=== PATIENT | female | born 1995 | race Caucasian/White ===

== ENCOUNTER 2019-05-20 20:29 | Emergency (ER) | payer BC ==
[2019-05-20 20:44] VITALS: BP 150/77
[2019-05-20] MEDS ORDERED: Ibuprofen TAB* 600 MG PO ONE (20:55)
[2019-05-20 21:14] LABS: Influenza A Molecular NEGATIVE (Negative); Influenza B Molecular NEGATIVE (Negative)
--- NOTE | 2019-05-20 21:51 | UC ---
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 Increasing sore throat with dysphagia, but keeping a high intake of fluids and continues to pass clear urine. Yesterday she rested in bed all day; today has had severe chills and rigors. No nausea or vomiting. Had loose stools evening of 05/17, but this has resolved. Appetite decreased. No rash or joint swelling. Has not had this year's flu vaccine. Boyfriend had a viral illness 1 month ago, had contact after his fever had resolved. No hx of EBV in the past, Recent travel to [place], no known infectious contacts while there, and has felt unwell since she returned. - History of Current Complaint Chief Complaint: UCGeneralIllness Time Seen by Provider: 05/20/19 21:40 Hx Obtained From: Patient Hx Last Menstrual Period: 05/05/19 Onset/Duration: Started Days Ago - 2 Timing: Constant Initial Severity: Moderate Current Severity: Moderate Pain Intensity: 7 Aggravating Factors: Nothing Alleviating Factors: OTC Medicine - first dose of ibuprofen taken was at this evening, with some relief of myalgias. Previously using mucinex alone. Associated Signs and Symptoms: Cough - minimal, without chest pain or dyspnea, Diaphoresis, Headache, Myalgia, Sore Throat - Risk Factors Pseudomonas Risk Factors: Negative Serious Bacterial Infection Risk Factors: Negative - Allergy/Home Medications Allergies/Adverse Reactions: Allergies Allergy/AdvReac Type Severity Reaction Status Date / Time Penicillins Allergy Intermediate Rash Verified 05/20/19 20:44 Home Medications: Home Medications guaiFENesin [Mucinex] 600 mg PO ONCE 05/20/19 [History Confirmed 05/20/19] PMH/Surg Hx/FS Hx/Imm Hx Previously Healthy: Yes - Surgical History Surgical History: Yes Surgery Procedure, Year, and Place: wisdom teeth - Family History Known Family History: Positive: Cardiac Disease - father age 65 of CAD, hx of stroke. - Social History Occupation: Student Lives: Alone Alcohol Use: Rare Substance Use Type: None Smoking Status (MU): Never Smoked Tobacco Review of Systems All Other Systems Reviewed And Are Negative: Yes Constitutional: Positive: Fever, Chills, Fatigue Skin: Positive: Negative. Negative: Rash Eyes: Positive: Negative. Negative: Photophobia ENT: Positive: Sore Throat, Nasal Discharge Respiratory: Positive: Cough - mild. Negative: Shortness Of Breath Cardiovascular: Negative: Palpitations, Chest Pain Gastrointestinal: Positive: Diarrhea - now resolved. Genitourinary: Positive: Negative, Other - has not been sexually active for about 8 months, has no vaginal discharge or low abdominal pain.. Negative: Dysuria, Hematuria, Frequency, Urgency Motor: Positive: Negative Neurovascular: Positive: Negative Musculoskeletal: Positive: Myalgia Neurological: Positive: Headache Psychological: Positive: Negative Is Patient Immunocompromised?: No Physical Exam Triage Information Reviewed: Yes Appearance: No Pain Distress, Ill-Appearing - looks flushed and unwell, but alert, Obese Vital Signs: Initial Vital Signs Temp 104.0 F 05/20/19 20:39 Pulse 132 05/20/19 20:39 Resp 19 05/20/19 20:39 BP 150/77 05/20/19 20:39 Pulse Ox 99 05/20/19 20:39 Eyes: Positive: Conjunctiva Inflamed - mild bilateral injection. JACQUELYN, normal eom. No photophobia ENT: Positive: Pharyngeal erythema, Nasal drainage, Tonsillar swelling - mild, without obstruction. Negative: Tonsillar exudate Neck: Positive: Supple - can freely flex her neck, Nontender, No Lymphadenopathy Respiratory: Positive: Lungs clear, Normal breath sounds, No respiratory distress Cardiovascular: Positive: No Murmur, Tachycardia Abdomen Description: Positive: Nontender, No Organomegaly, Soft. Negative: CVA Tenderness (R), CVA Tenderness (L) Musculoskeletal Exam: Normal Musculoskeletal: Positive: Strength Intact, ROM Intact, No Edema Neurological: Positive: Alert, Muscle Tone Normal Psychological Exam: Normal Skin Exam: Normal Diagnostics - Laboratory Lab Results: rapid flu and rapid strep negative Course/Dx - Course Course Of Treatment: Viral syndrome, with high fever for the past 24 hours or so. Discussed that there is no clinical focus. Labs done to check white count and monospor. Advised follow up if fever persists or symptoms change. - Febrile Illness Differential Diagnoses: Fever of Unknown Origin, Viremia, Other: - strep, influenza - Diagnoses Provider Diagnosis: Viral syndrome Discharge ED - Sign-Out/Discharge Documenting (check all that apply): Patient Departure All imaging exams completed and their final reports reviewed: No Studies - Discharge Plan Condition: Stable Disposition: HOME Patient Education Materials: Viral Syndrome (ED) Referrals: No Primary Care Phys,NOPCP [Primary Care Provider] - Additional Instructions: Labs have been done to check your white count and screen for possible mononucleosus. For control of fever, you can alternate ibuprofen 600mg every 6 hours with acetaminophen 650mg every 6 hours. Ensure continued high intake of fluids. If your fever persists, you develop worsening cough or shortness of breath, new symptoms such as abdominal pain or vomiting, it is important to have a reassessment. - Billing Disposition and Condition Condition: STABLE Disposition: Home
[2019-05-20] MEDS ORDERED: Acetaminophen TAB* 325 MG PO ONE (22:00)
[2019-05-21 11:22] LABS: Hematocrit 40 % (35-47); Hemoglobin 13.5 g/dL (12.0-16.0); Mean Corpuscular HGB Conc 34 g/dL (31-36); Mean Corpuscular Hemoglobin 30 pg (27-31); Mean Corpuscular Volume 89 fL (80-97); Mean Platelet Volume 8.5 fL (7.4-10.4); Platelet Count 369 10^3/uL (150-450); Red Blood Count 4.46 10^6 /uL (3.70-4.87); Red Cell Distribution Width 13 % (10-15); White Blood Count 13.9 10^3/uL (3.5-10.8)
[2019-05-21 11:42] LABS: Albumin 4.3 g/dL (3.2-5.2); Calcium 9.4 mg/dL (8.6-10.3); Potassium 3.8 mmol/L (3.5-5.0); Total Bilirubin 0.5 mg/dL (0.2-1.0)
[2019-05-21 11:48] LABS: Albumin/Globulin Ratio 1.5 (1-3); BUN/Creatinine Ratio 12.2 (8-20); EGFR African American 117.7 (>60); EGFR Non-African American 97.3 (>60); Globulin 2.8 g/dL (2-4); Total Protein 7.1 g/dL (6.4-8.9)
[2019-05-21 12:11] LABS: ABS Basophils 0.1 10^3/ul (0-0.2); ABS Lymphocytes 2.3 10^3/ul (1.0-4.8); ABS Monocytes 1.9 10^3/ul (0-0.8); ABS Neutrophils 9.6 10^3/ul (1.5-7.7); Eosinophil % 0.1 %; Lymphocyte % 16.5 %; Nucleated Red Blood Cells % 0.1
--- NOTE | 2019-05-21 18:41 | UC ---
- Progress Note Progress Note: Please call to review labs. Seen last evening with high fever. She has a mild increase in her white blood count, and her serum sodium is a little low. Monospot is negative. Call to ensure that she is improving, and advise should follow up if she is having persistent fevers. The low serum sodium does not need treatment--it can accompany an acute illness and should correct itself. Course/Dx - Diagnoses Provider Diagnoses: Viral syndrome Discharge ED - Sign-Out/Discharge Documenting (check all that apply): Post-Discharge Follow Up All imaging exams completed and their final reports reviewed: No Studies - Discharge Plan Condition: Stable Disposition: HOME Patient Education Materials: Viral Syndrome (ED) Referrals: No Primary Care Phys,NOPCP [Primary Care Provider] - Additional Instructions: Labs have been done to check your white count and screen for possible mononucleosus. For control of fever, you can alternate ibuprofen 600mg every 6 hours with acetaminophen 650mg every 6 hours. Ensure continued high intake of fluids. If your fever persists, you develop worsening cough or shortness of breath, new symptoms such as abdominal pain or vomiting, it is important to have a reassessment. - Billing Disposition and Condition Condition: STABLE Disposition: Home
== END 2019-05-20 22:25 | disposition home or self-care (01) ==
LOC: UCEAST 20:29
DX: B34.9 Viral infection, unspecified (principal); R51 Headache; M79.10 Myalgia, unspecified site; J02.9 Acute pharyngitis, unspecified; R13.10 Dysphagia, unspecified; R09.89 Other specified symptoms and signs involving the circulatory and respiratory systems; R63.8 Other symptoms and signs concerning food and fluid intake; Z88.0 Allergy status to penicillin
CPT/HCPCS: 36415; 80053; 85025; 85060; 86308; 87651; 99202; A9270-GY; G0463

== ENCOUNTER 2019-05-22 10:40 | Emergency (ER) | payer BC ==
[2019-05-22 11:02] VITALS: BP 134/65
--- NOTE | 2019-05-22 11:36 | UC ---
Throat Pain/Nasal Magdaleno HPI - HPI Summary HPI Summary: 23-year-old woman comes in with chief complaint of 5 days of fevers chills and bodyaches sore throat. She was seen here on 20 May had a negative influenza negative strep negative mono spot. Her white blood cell count was elevated at 13.9 thousand with an increase in the percentage of neutrophils. Monocytes were not increased. Sodium was also slightly low at 133. Since that time fevers have improved some however throat is more painful and it's more difficult to swallow. Patient reports she is able to drink water and breathe. She also has a dry cough which she believes is from postnasal drip. She has been tired but not extremely fatigued. - History of Current Complaint Chief Complaint: UCRespiratory Stated Complaint: RECHECK COUGH SORE THROAT Time Seen by Provider: 05/22/19 11:13 Hx Last Menstrual Period: 05/05/19 Pain Intensity: 6 - Allergies/Home Medications Allergies/Adverse Reactions: Allergies Allergy/AdvReac Type Severity Reaction Status Date / Time Penicillins Allergy Intermediate Rash Verified 05/22/19 11:02 Home Medications: Home Medications Acetaminophen [Mapap] 500 mg PO Q6HR 05/22/19 [History Confirmed 05/22/19] Ibuprofen 400 mg PO Q6HR 05/22/19 [History Confirmed 05/22/19] PMH/Surg Hx/FS Hx/Imm Hx Previously Healthy: Yes - Surgical History Surgical History: Yes Surgery Procedure, Year, and Place: wisdom teeth - Family History Known Family History: Positive: Cardiac Disease - father age 65 of CAD, hx of stroke. - Social History Alcohol Use: Rare Substance Use Type: None Smoking Status (MU): Never Smoked Tobacco Review of Systems All Other Systems Reviewed And Are Negative: Yes Constitutional: Positive: Fever, Chills, Fatigue, Other - SEE HPI Skin: Positive: Negative Eyes: Positive: Negative ENT: Positive: Sore Throat, Nasal Discharge Respiratory: Positive: Cough Cardiovascular: Positive: Negative Gastrointestinal: Positive: Negative Motor: Positive: Negative Neurovascular: Positive: Negative Musculoskeletal: Positive: Myalgia Neurological: Positive: Negative Psychological: Positive: Negative Is Patient Immunocompromised?: No Physical Exam Triage Information Reviewed: Yes Appearance: No Pain Distress, Well-Nourished, Ill-Appearing - MILD Vital Signs: Initial Vital Signs Temp 98.5 F 05/22/19 10:58 Pulse 88 12/05/19 10:58 Resp 18 05/22/19 10:58 BP 134/65 05/22/19 10:58 Pulse Ox 97 05/22/19 10:58 Vital Signs Reviewed: Yes Eye Exam: Normal Eyes: Positive: Conjunctiva Clear ENT: Positive: Pharyngeal erythema, Nasal drainage, TMs normal, Tonsillar swelling - 3+ B/L, Tonsillar exudate. Negative: Muffled voice, Hoarse voice Neck: Positive: Supple Respiratory: Positive: Lungs clear, Normal breath sounds, No respiratory distress. Negative: Stridor Cardiovascular: Positive: RRR Musculoskeletal: Positive: Strength Intact, ROM Intact Neurological: Positive: Alert, Muscle Tone Normal Psychological: Positive: Age Appropriate Behavior Skin Exam: Normal Throat Pain/Nasal Course/Dx - Course Course Of Treatment: We discussed the lab work from the May 20, 2019 visit. At this time I do not appreciate a peritonsillar abscess. Her tonsils are enlarged and she reports that been getting worse. We discussed viral versus bacterial infections and will treat with clindamycin due to the possibility of a missed bacterial tonsillitis. We'll also treat with 3 days of prednisone to help decrease swelling in the throat. At this time the patient does not have any problems with her airway. We discussed that if she does she need to the emergency department. - Differential Dx/Diagnosis Provider Diagnosis: Tonsillitis Discharge ED - Sign-Out/Discharge Documenting (check all that apply): Patient Departure All imaging exams completed and their final reports reviewed: No Studies - Discharge Plan Condition: Stable Disposition: HOME Prescriptions: Clindamycin Cap(NF) [Clindamycin Cap 300 mg Cap(NF)] 300 mg PO Q6H #40 cap predniSONE TAB* [Deltasone 20 MG TAB*] 40 mg PO DAILY #6 tab Patient Education Materials: Tonsillitis (ED) Referrals: [facility] [Outside] [facility] @ [Outside] Additional Instructions: FOLLOW UP WITH YOUR DOCTOR IF NOT COMPLETELY IMPROVED. GO TO THE EMERGENCY DEPARTMENT IF WORSE; DIFFICULTY SWALLOWING OR BREATHING OR ANY QUESTIONS OR CONCERNS. - Billing Disposition and Condition Condition: STABLE Disposition: Home
== END 2019-05-22 11:42 | disposition home or self-care (01) ==
LOC: UCEAST 10:40
DX: J03.90 Acute tonsillitis, unspecified (principal); M79.10 Myalgia, unspecified site; R53.83 Other fatigue; R09.89 Other specified symptoms and signs involving the circulatory and respiratory systems; Z88.0 Allergy status to penicillin
CPT/HCPCS: 99212; G0463

== ENCOUNTER 2019-05-31 20:28 | Observation (INO) | payer BC ==
--- NOTE | 2019-05-31 20:54 | ED ---
Lower Extremity - HPI Summary HPI Summary: Patient is a 23 y/o F presenting to the ED for a chief complaint of left ankle, calf, and knee swelling that worsened on 05/29/19. Patient is present with a friend. Patient states that for the last 2 weeks, she has been wearing an aircast on the left ankle after injuring the area playing volleyball. She now complains of worsening swelling and pain in the left ankle, left calf, and left knee. Patient denies any chest pain or shortness of breath. She has taken Tylenol and Advil for pain with some relief. Patient notes that she is completing a course of antibiotics for a prior respiratory infection. Any significant PMHx or PSHx is denied. - History of Current Complaint Chief Complaint: EDExtremityLower Stated Complaint: L LEG PAIN PER PT Time Seen by Provider: 05/31/19 20:47 Hx Obtained From: Patient Mechanism Of Injury: Fall From A Standing Position - Playing volleyball Onset of Pain: Immediate Onset/Duration: Still Present Severity Initially: Severe Severity Currently: Severe Pain Intensity: 7 Pain Scale Used: 0-10 Numeric Timing: Constant Location: Is Discrete @ - Left ankle, knee, and calf Character Of Pain: Unable To Describe Associated Signs And Symptoms: Positive: Knee Pain - Left Aggravating Factor(s): Nothing Alleviating Factor(s): OTC Meds - Tylenol and Advil - Allergies/Home Medications Allergies/Adverse Reactions: Allergies Allergy/AdvReac Type Severity Reaction Status Date / Time Penicillins Allergy Rash And Verified 05/31/19 20:32 Itching PMH/Surg Hx/FS Hx/Imm Hx Previously Healthy: Yes Endocrine/Hematology History: Denies: Hx Diabetes Cardiovascular History: Denies: Hx Hypercholesterolemia, Hx Hypertension Sensory History: Denies: Hx Legally Blind, Hx Deafness Opthamlomology History: Denies: Hx Legally Blind EENT History: Denies: Hx Deafness - Surgical History Surgical History: None Surgery Procedure, Year, and Place: None Infectious Disease History: No Infectious Disease History: Denies: Traveled Outside the [place] in Last 30 Days - Family History Known Family History: Negative: Diabetes, Renal Disease - Social History Occupation: Student Alcohol Use: Occasionally Hx Substance Use: No Substance Use Type: Reports: None Hx Tobacco Use: No Smoking Status (MU): Never Smoked Tobacco Review of Systems Negative: Chest Pain Negative: Shortness Of Breath Positive: Arthralgia - Left knee and ankle, Myalgia - Left calf, Edema - Left knee, ankle, and calf All Other Systems Reviewed And Are Negative: Yes Physical Exam - Summary Physical Exam Summary: Appearance: Well-appearing, Well-nourished, lying in bed comfortably Skin: Warm, dry, no obvious rash Eyes: sclera anicteric, no conjunctival pallor ENT: mucous membranes moist, pharynx appears normal Neck: Supple, nontender Respiratory: Clear to auscultation, no signs of respiratory distress Cardiovascular: Normal S1, S2. No murmurs. Normal distal pulses in tibial and radial bilaterally. Abdomen: Soft, nontender, normal active bowel sounds present Musculoskeletal: Strength/ROM Intact. Left leg is somewhat swollen and warmer than the right leg, pitting edema on the couch, no redness or focal tenderness, patient states soreness when the area is squeezed. Neurological: A&Ox3, awake and alert, mentation is normal, speech is fluent and appropriate Psychiatric: affect is normal, does not appear anxious or depressed Triage Information Reviewed: Yes Vital Signs On Initial Exam: Initial Vitals Temp Pulse Resp BP Pulse Ox 97.7 F 120 15 133/90 100 05/31/19 20:29 05/31/19 20:29 05/31/19 20:29 05/31/19 20:29 05/31/19 20:29 Vital Signs Reviewed: Yes Procedures - Sedation Patient Received Moderate/Deep Sedation with Procedure: No Diagnostics - Vital Signs Vital Signs Temp Pulse Resp BP Pulse Ox 05/31/19 20:29 97.7 F 120 15 133/90 100 - Laboratory Result Diagrams: 05/31/19 22:17 05/31/19 22:17 Lab Statement: Any lab studies that have been ordered have been reviewed, and results considered in the medical decision making process. - Radiology Venous Doppler Study Summary of Radiographic Findings: Venous Doppler Study IMPRESSION: Acute DVT from the distal common femoral vein to the calf veins. Reviewed by Dr. Luna. - CT Chest/Thorax CTA CT Interpretation Completed By: Radiologist Summary of CT Findings: Chest/Thorax CTA IMPRESSION: Moderate volume pulmonary emboli burden with findings suggesting right heart strain and possible early small right lower lobe pulmonary infarct. Reviewed by Dr. Luna. Chest CT CT Interpretation Completed By: Radiologist Summary of CT Findings: Chest CT IMPRESSION: . Reviewed by Dr. Luna. Re-Evaluation - Re-Evaluation First Eval Re-Evaluation Time: 22:08 Change: Unchanged Comment: At 22:08, after coming back from ultrasound, patient admitted some dyspnea on exertion walking her apartment for the last 2 days. A re-evaluation of her vitals showed a blood pressure in the 120s, so I will order a chest CT to assess for pulmonary embolism. Lower Extremity Course/Dx - Course Course Of Treatment: Patient is a 23 y/o F presenting to the ED for a chief complaint of left ankle, calf, and knee swelling that worsened on 05/29/19. Patient is present with a friend. Patient states that for the last 2 weeks, she has been wearing an aircast on the left ankle after injuring the area playing volleyball. She now complains of worsening swelling and pain in the left ankle, left calf, and left knee. Patient denies any chest pain or shortness of breath. She has taken Tylenol and Advil for pain with some relief. Patient notes that she is completing a course of antibiotics for a prior respiratory infection. Any significant PMHx or PSHx is denied. On exam, left leg is somewhat swollen and warmer than the right leg, pitting edema on the couch, no redness or focal tenderness, patient states soreness when the area is squeezed. In the ED course , patient was given Xarelto 15 mg PO, omnipaque 91 ml IV, and fluids. Laboratory abnormal findings: WBC 17.4, Plt count 465, MPV 6.9, absolute neuts 10.8, absolute monos 2.2, urine specific gravity 1.058, urine ketones 3+, urine WBC 1+, urine RBC 3+, urine squamous epith cells present. Venous Doppler Study IMPRESSION: Acute DVT from the distal common femoral vein to the calf veins. At 22:08, after coming back from ultrasound, patient admitted some dyspnea on exertion walking her apartment for the last 2 days. A re-evaluation of her vitals showed a blood pressure in the 120s, so I will order a chest CT to assess for pulmonary embolism. Chest/Thorax CTA IMPRESSION: Moderate volume pulmonary emboli burden with findings suggesting right heart strain and possible early small right lower lobe pulmonary infarct. At 00:45, Dr. Sanjuanita Obrien reviewed the patients case and agrees to admit the patient to [facility]. Patient will be admitted to [facility] with a diagnosis of deep vein thrombosis and pulmonary embolism. - Diagnoses Provider Diagnoses: DVT (deep venous thrombosis), Pulmonary embolism - Physician Notifications Discussed Care Of Patient With: Sanjuanita Obrien - At 00:45, Dr. Sanjuanita Obrien reviewed the patients case and agrees to admit the patient to [facility]. Time Discussed With Above Provider: 00:45 Instructed by Provider To: Admit As Inpatient Discharge ED - Sign-Out/Discharge Documenting (check all that apply): Patient Departure - Admit - Discharge Plan Condition: Good Disposition: ADMITTED TO [facility] - Billing Disposition and Condition Condition: GOOD Disposition: Admitted to [facility] - Attestation Statements Document Initiated by Crys: Yes Documenting Scribe: Serene Ontiveros Provider For Whom Crys is Documenting (Include Credential): Julio Luna MD Scribe Attestation: Serene Buchanan, scribed for Julio Luna MD on 06/01/19 at 0136. Scribe Documentation Reviewed: Yes Provider Attestation: The documentation as recorded by the Serene grayson accurately reflects the service I personally performed and the decisions made by , Julio Luna MD Status of [place]rib[place]ie Document: Viewed
[2019-05-31] MEDS ORDERED: NS 0.9% 1000 ML** 1,000 ML IV ONE (22:07)
[2019-05-31] MEDS ORDERED: Rivaroxaban TAB(*) 15 MG PO ONE (22:07)
[2019-05-31 22:23] LABS: Hematocrit 36 % (35-47); Hemoglobin 12.3 g/dL (12.0-16.0); Mean Corpuscular HGB Conc 34 g/dL (31-36); Mean Corpuscular Hemoglobin 30 pg (27-31); Mean Corpuscular Volume 87 fL (80-97); Mean Platelet Volume 6.9 fL (7.4-10.4); Platelet Count 465 10^3/uL (150-450); Red Blood Count 4.18 10^6 /uL (3.70-4.87); Red Cell Distribution Width 13 % (10-15); White Blood Count 17.4 10^3/uL (3.5-10.8)
[2019-05-31 22:40] LABS: ABS Basophils 0.1 10^3/ul (0-0.2); ABS Eosinophils 0.3 10^3/ul (0-0.6); ABS Lymphocytes 4.1 10^3/ul (1.0-4.8); ABS Monocytes 2.2 10^3/ul (0-0.8); ABS Neutrophils 10.8 10^3/ul (1.5-7.7); ALT 19 U/L (7-52); AST 16 U/L (13-39); Albumin 3.9 g/dL (3.2-5.2); Alkaline Phosphatase 70 U/L (34-104); Anion Gap 8 mmol/L (2-11); BUN/Creatinine Ratio 15.3 (8-20); Blood Urea Nitrogen 11 mg/dL (6-24); CO2 Carbon Dioxide 24 mmol/L (22-32); Calcium 9.1 mg/dL (8.6-10.3); Chloride 103 mmol/L (101-111); EGFR African American 121.5 (>60); EGFR Non-African American 100.4 (>60); Eosinophil % 1.4 %; Glucose 99 mg/dL (70-100); Lymphocyte % 23.5 %; Potassium 3.6 mmol/L (3.5-5.0); Sodium 135 mmol/L (135-145); Total Protein 7.9 g/dL (6.4-8.9)
[2019-05-31 22:47] LABS: HCG Pregnancy < 0.60 mIU/mL
[2019-05-31] MEDS ORDERED: Iohexol 350* (CONTRAST) 500 ML MDV IV ONE (22:53)
[2019-06-01 01:10] LABS: Urine Appearance Cloudy; Urine Bilirubin Negative (Negative); Urine Blood 3+ (Negative); Urine Color Yellow; Urine Glucose Negative (Negative); Urine Ketones Negative (Negative); Urine Nitrite Negative (Negative); Urine Protein Negative (Negative); Urine Specific Gravity 1.058 (1.010-1.030); Urine Urobilinogen Negative (Negative)
[2019-06-01 01:12] LABS: Urine Bacteria Absent (Absent); Urine Red Blood Cell 3+(>10/hpf) (Absent); Urine Squamous Epithelial Cell Present (Absent); Urine White Blood Cell 1+(6-10/hpf) (Absent)
[2019-06-01] MEDS: NS 0.9% 1000 ML** 1,000 ML IV SCH ×2 (02:12→11:00)
--- NOTE | 2019-06-01 03:30 | ADMNOTE ---
Subjective Interval History: H&P 23 yo healthy female presented with acute swelling of her left lower EXT. She has been mostly bedbound after spraining her left ankle playing volleyball and she was using an aircast. US of her left EXT showed a pretty extensive DVT. Pt also had a CTA which showed multiple PEs bilaterally and evidence of right heart strain. Pt does not have any chest pain, denies feeling short of breath. She was on Abx recently for a URI. Family History: Unchanged from Admission Social History: Unchanged from Admission Past Medical History: Unchanged from Admission Review of Systems - Measurements Intake and Output: Intake and Output Last 24 Hours 05/29/19 05/30/19 05/31/19 06/01/19 06:59 06:59 06:59 06:59 Weight 235 lb - Review of Systems Constitutional Symptoms: Negative: Weight Gain, Weight Loss, Weakness, Fatigue, Fever, Night Sweats, Unexplained Falls, Other Dermatology: Negative: Normal, Rash, Skin Lesions, Cancer, Skin Lumps, Other HEENT: Negative: Normal, Change in Hearing, Vertigo, Dental Problems, Tinnitus, Sinus Problem, Other Eyes: Negative: Normal, Change in Vision, Double Vision, Eye Pain, Glaucoma, Cataract, Contacts or Glasses, Other Thyroid: Negative: Normal, Goiter, Thyroid Nodule, Cold Intolerance, Heat Intolerance , Sweatiness, Tremor, Frequent Defecation, Constipation, Palpitations, Primary Hypothyroidism, Primary Hyperthyroidism, Weight Loss, Weight Gain, Change in Skin/Hair, Change in Menstruation, Radiation Exposure, Other Pulmonary: Negative: Normal, Cough, Sputum, Hemoptysis, Wheezing, Respiratory Distress, Shortness of Breath, COPD, Asthma, Exercise Intolerance, Home Oxygen, Other Cardiology: Negative: Normal, Chest Pain, Shortness of Breath, Palpitations, Swelling of Ankles, Peripheral Vascular Dis, Edema, Faintness, Syncope, Claudication, Proximal NocturnalDyspnea, Orthopnoea, Other Gastroenterology: Negative: Normal, Abdominal Pain, Nausea, Vomiting, Anorexia, Indigestion, Difficulty Swallowing, Heartburn, Constipation, Diarrhea, Blood in Stools, Change in Bowel Habits, Haematemesis, Melena, Other Genital - Urinary: Negative: Normal, Dysuria, Hematuria, Polyuria, Nocturia, Other Genitourinay - Female: Negative: Menses Normal, Vaginal Discharge, Menopause, Dysmenorrhea, Other Musculoskeletal: Negative: Joint Pain, Joint Stiffness, Arthritis, Osteoporosis, Low Back Pain , Sciatica, Joint Deformities, Kyphoscoliosis, Other Endocrinology: Negative: Normal, Thyroid Problems, Adrenal Problems, Gonadal Problems, Family Hx Endocrine Disorders, Obesity, Diabetes Mellitus, Hyperglycemia, Hx Hypoglycemia, Diabetic Foot Ulcers, Calluses, Hirsutism, Menstrual Abnormalities , Polydipsia, Polyuria, Gonadal Problems, Gynecomastia, Pituitary disease, Other Hematologic/Lymphatic: Negative: Anemia, Easy Bruising, Hx Leukemia, Hx Lymphoma, Use of Anticoagulant, Use of Antiplatelet Drugs, Other Neurology: Negative: Normal, Headache, Migraines, Change in Vision, Diplopia, Dizziness , Change in Balancing, Change in Coordination, Change in Memory, Change in Speech, Change in Sphincter Function, Change in Walking, Numbness\Paresthesiae, Unexplained Weakness, Hx of Stroke\TIA, Hx of Seizures, Other Psychiatry: Negative: Normal, Depression, Anxiety, Depressed Mood, Anhedonia, Sexual Dysfunction, Weight Change, Guilt Feelings, Tearfulness, Unusual Fatigue, Unusual Anxiety, Suicidal Ideation, Hypomania, Eating Disorders, Other Allergic/Immunologic: Negative: Hx Anaphylaxis, Hx Angioedema, Hx Environmental, Hx Seasonal, Asthma, Hx HIV, Immunocompromise, Swollen Glands LymphNodes, Other Objective Active Medications: Sodium Chloride (Ns 0.9% 1000 Ml) 1,000 mls @ 125 mls/hr IV Q8H [facility] Last Admin: 06/01/19 02:12 Dose: 125 mls/hr Rivaroxaban (Xarelto(*)) 15 mg PO BID [facility] Vital Signs - 8 hr 05/31/19 05/31/19 05/31/19 20:29 22:34 22:39 Temperature 97.7 F Pulse Rate 120 224 211 Respiratory 15 20 Rate Blood Pressure 133/90 116/85 (mmHg) O2 Sat by Pulse 100 97 98 Oximetry 06/01/19 06/01/19 01:47 01:55 Temperature 101 F 99.0 F Pulse Rate 118 111 Respiratory 16 12 Rate Blood Pressure 141/81 122/70 (mmHg) O2 Sat by Pulse 94 96 Oximetry Oxygen Devices in Use Now: None Eyes: No Scleral Icterus, PERRLA Ears/Nose/Mouth/Throat: Clear Oropharnyx, Mucous Membranes Moist Neck: NL Appearance and Movements; NL JVP, Trachea Midline, No Thyroid Enlargement, Masses Respiratory: Symmetrical Chest Expansion and Respiratory Effort, Clear to Auscultation, Clear to Percussion Cardiovascular: NL Sounds; No Murmurs; No JVD, - - LLE edema Abdominal: NL Sounds; No Tenderness; No Distention Lymphatic: No Cervical Adenopathy Skin: No Rash or Ulcers, No Nodules or Sclerosis Neurological: Alert and Oriented x 3 Result Diagrams: 05/31/19 22:17 05/31/19 22:17 Assess/Plan/Problems-Billing Assessment: - Patient Problems (1) Pulmonary emboli Current Visit: Yes Status: Acute Code(s): I26.99 - OTHER PULMONARY EMBOLISM WITHOUT ACUTE COR PULMONALE SNOMED Code(s): 49739901 Comment: injured her leg, has mostly been bedbound since. Now presenting with acute swelling from a DVT and multiple PEs. Hx of provoked PEs in father Echo and trend troponins for risk stratificaiton Xarelto 15 BID for 3 weeks followed by 20 daily (2) Full code status Current Visit: Yes Status: Acute Code(s): Z78.9 - OTHER SPECIFIED HEALTH STATUS SNOMED Code(s): 334519928 (3) DVT prophylaxis Current Visit: Yes Status: Acute Code(s): Z29.9 - ENCOUNTER FOR PROPHYLACTIC MEASURES, UNSPECIFIED SNOMED Code(s): 698598892 Comment: xarelto
[2019-06-01] MEDS ORDERED: Benzonatate CAP* 100 MG PO PRN (03:35)
[2019-06-01] MEDS ORDERED: Acetaminophen TAB* 325 MG PO PRN (03:35)
[2019-06-01] MEDS ORDERED: Clindamycin CAP* 150 MG PO SCH (06:00)
[2019-06-01 06:19] LABS: Hematocrit 32 % (35-47); Hemoglobin 11.2 g/dL (12.0-16.0); Mean Corpuscular HGB Conc 35 g/dL (31-36); Mean Corpuscular Hemoglobin 30 pg (27-31); Mean Corpuscular Volume 86 fL (80-97); Mean Platelet Volume 6.6 fL (7.4-10.4); Platelet Count 424 10^3/uL (150-450); Red Blood Count 3.74 10^6 /uL (3.70-4.87); Red Cell Distribution Width 13 % (10-15); White Blood Count 15.6 10^3/uL (3.5-10.8)
[2019-06-01 06:35] LABS: BUN/Creatinine Ratio 10.4 (8-20); Calcium 8.3 mg/dL (8.6-10.3); EGFR Non-African American 109.1 (>60); Potassium 3.5 mmol/L (3.5-5.0)
--- NOTE | 2019-06-01 07:57 | PN ---
Subjective Date of Service: 06/01/19 Interval History: HD2 on 06/01 23F no sig PMH presented with blt PE and DVT after leg injury. Not on OCP, deos report period of inactivity. Overnight VSS-fever to 101, tachy reported to 224-this is an error and will be ammended. Checked tele only sig for a few couplets Labs stable Echo done, awaiting results This morning, seen while ambulating denies CP, SOB, or coughing. Slightly surprised by the event but no acute complaints, reviewed follow up needs and mechanism, ensured DOAC is covered. Answered questions about PE and DVT. She has no other complaints like GI MSK or neuro. Counseled patient on what to expect with mom on the phone for 30 mins. Family History: Unchanged from Admission Social History: Unchanged from Admission Past Medical History: Unchanged from Admission Objective Active Medications: Acetaminophen (Tylenol Tab*) 650 mg PO Q4H PRN PRN Reason: PAIN - MILD Last Admin: 06/01/19 05:11 Dose: 650 mg Benzonatate (Tessalon Cap*) 100 mg PO BID PRN PRN Reason: COUGH Last Admin: 06/01/19 05:12 Dose: 100 mg Clindamycin HCl (Cleocin Cap*) 300 mg PO Q6HR [facility] Last Admin: 06/01/19 05:12 Dose: 300 mg Sodium Chloride (Ns 0.9% 1000 Ml) 1,000 mls @ 125 mls/hr IV Q8H [facility] Last Admin: 06/01/19 02:12 Dose: 125 mls/hr Rivaroxaban (Xarelto(*)) [address] [facility] Vital Signs - 8 hr 06/01/19 06/01/19 01:47 01:55 Temperature 101 F 99.0 F Pulse Rate 118 111 Respiratory 16 12 Rate Blood Pressure 141/81 122/70 (mmHg) O2 Sat by Pulse 94 96 Oximetry Oxygen Devices in Use Now: None Appearance: V pleasant woman in NAD Eyes: No Scleral Icterus Ears/Nose/Mouth/Throat: NL Teeth, Lips, Gums Neck: NL Appearance and Movements; NL JVP, Trachea Midline Respiratory: Symmetrical Chest Expansion and Respiratory Effort, Clear to Auscultation Cardiovascular: NL Sounds; No Murmurs; No JVD, RRR Abdominal: NL Sounds; No Tenderness; No Distention, No Hepatosplenomegaly Lymphatic: No Cervical Adenopathy Extremities: No Edema Skin: No Rash or Ulcers Neurological: Alert and Oriented x 3 Result Diagrams: 06/01/19 06:13 06/01/19 06:13 Diagnostic Imaging: Patient Name: KENZIE ARCHULETA Medical Record#: [id number] Ordering Physician: Julio Luna MD Acct.#: [id number] : 1995 Age: 23 Sex: F Location: EMERGENCY DEPARTMENT Exam Date: 05/31/192207 ADM Status: REG ER FINDINGS: Pulmonary arteries: Pulmonary arteries are well-opacified the subsegmental branches. Multiple acute pulmonary filling defects throughout the pulmonary artery tree including anterior segmental branch right upper lobe, right middle lobe lobar and segmental branches, right lower lobe lobar and segmental branches, and left lower lobe basilar segmental branches. Main pulmonary artery is normal in caliber. Aorta: No aortic atherosclerotic calcifications. No aortic dissection, aneurysm, or rupture. Thyroid: No thyroid nodules. Lungs: Parenchymal scarring versus subsegmental atelectasis medial segment right middle lobe. Subtle groundglass opacification lateral basal segment right lower lobe. No bronchiectasis, peribronchial thickening, or luminal defects. Pleural space: Normal. No pneumothorax. No pleural effusion. Heart: RV/LV = 1 (nl <0.9). No pericardial effusion. Lymph nodes: Normal. No enlarged lymph nodes. Bones/joints: No fractures. No suspicious bone lesions. Soft tissues: Normal. Patient Name: KENZIE ARCHULETA Medical Record#: [id number] PROCEDURE INFORMATION: Exam: US Duplex Left Lower Extremity Veins, Limited Exam date and time: 05/31/2019 9:53 PM Age: 23 years old Clinical history: Pain; Leg, lower; Left; Additional info: Pain, swelling after immob in aircast, R/O dvt FINDINGS: Left deep veins: Filling defect within the distal common femoral vein which extends distally occluding the femoral, popliteal, and peroneal veins which show no compression or augmentation. Partial filling defect identified within the visualized posterior tibial vein which shows no compression or augmentation. Left superficial veins: Normal. Saphenofemoral junction is patent without thrombus. Soft tissues: Normal. Assess/Plan/Problems-Billing Assessment: 23F no sig PMH presented with blt PE and DVT after leg injury. Not on OCP, deos report period of inactivity. PESI is LOW - Patient Problems (1) Pulmonary emboli Current Visit: Yes Status: Acute Code(s): I26.99 - OTHER PULMONARY EMBOLISM WITHOUT ACUTE COR PULMONALE SNOMED Code(s): 59186194 Comment: -Provoked from leg injury, has mostly been bedbound since. Now presenting with acute swelling from a DVT and multiple PEs. No e/o hemodynamic compromise, PESI low, stable for d/c, echo pending and will FU with outpt primary care and heme -Will need workup after 3-6 mo of tx -Hx of provoked PEs in father -Xarelto 15 BID for 3 weeks followed by 20 daily (2) Left leg DVT Current Visit: Yes Status: Acute Code(s): I82.402 - ACUTE EMBOLISM AND THOMBOS UNSP DEEP VEINS OF L LOW EXTREM SNOMED Code(s): 060962616 Comment: -As per above, compression stocking,tylenol (3) DVT prophylaxis Current Visit: Yes Status: Acute Code(s): Z29.9 - ENCOUNTER FOR PROPHYLACTIC MEASURES, UNSPECIFIED SNOMED Code(s): 610012170 Comment: -xarelto (4) Full code status Current Visit: Yes Status: Acute Code(s): Z78.9 - OTHER SPECIFIED HEALTH STATUS SNOMED Code(s): 833866124 Status and Disposition: Stable for d/c
[2019-06-01] MEDS ORDERED: Rivaroxaban TAB(*) 15 MG PO SCH (09:00)
--- NOTE | 2019-06-01 11:34 | ECHO ---
*[facility]* [place] [address] Fax #: [phone] Transthoracic Echocardiogram Patient: Maria Dolores Stewart : 1995 Study Date: 06/01/2019 Age: 23 Gender: F HR: 84 bpm Height: 71 in /180.3 cm BSA: 2.3 m^2 Weight: 244.5 lb /111.1 kg BMI: 34.2 kg/m^2 *Medical Insurance Claims Specialist: * Seda Nunez [facility] *Referring Physician: * Sanjuanita Obrien *Reading Physician: * Jesi Beard MD Indications: Edema. Pulmonary Embolism.. History: Risk factors: Obese. Conclusions Summary: - Left ventricle: The cavity size is mildly dilated. Wall thickness is normal. Systolic function is normal. The estimated ejection fraction is 55-60%. Wall motion is normal; there are no regional wall motion abnormalities. - Right ventricle: The cavity size is moderately dilated. - Ventricular septum: There is septal flattening of the interventricular septum consistent with RV volume or pressure overload. - Right atrium: The atrium is mildly dilated. - Mitral valve: There is trace regurgitation. - Tricuspid valve: There is physiologic regurgitation. - Pulmonary arteries: Systolic pressure can not be accurately estimated. Study data: Transthoracic echocardiogram. Procedure: Transthoracic echocardiography was performed. Image quality was good. Complete 2D, spectral Doppler, and color flow Doppler. Location: Bedside. Patient status: Inpatient. Patient room number: 446-2. Rhythm: Normal sinus rhythm. Findings Left ventricle: The cavity size is mildly dilated. Wall thickness is normal. Systolic function is normal. The estimated ejection fraction is 55-60%. Wall motion is normal; there are no regional wall motion abnormalities. Left ventricular diastolic function parameters are normal. Right ventricle: The cavity size is moderately dilated. Systolic function is normal. Ventricular septum: There is septal flattening of the interventricular septum consistent with RV volume or pressure overload. Left atrium: The atrium is normal in size. Right atrium: The atrium is mildly dilated. Mitral valve: The leaflets are normal thickness. There is no evidence of stenosis. There is trace regurgitation. Aortic valve: The valve is trileaflet. The leaflets are normal thickness. There is no evidence of stenosis. There is no significant regurgitation. Tricuspid valve: The leaflets are normal thickness. There is no evidence of stenosis. There is physiologic regurgitation. Pulmonic valve: The leaflets are normal thickness. There is no evidence of stenosis. There is trace regurgitation. Aorta: Aortic root: The aortic root is appears normal. Ascending aorta: The ascending aorta is appears normal. Aortic arch: The aortic arch is appears normal. Pericardium: There is no significant pericardial effusion. Pulmonary arteries: The main pulmonary artery is normal-sized. Systolic pressure can not be accurately estimated. Systemic veins: Inferior vena cava: The vessel is normal in size. There is (>= 50%) respiratory change in the IVC dimension. Measurements Left ventricle Value Ref Aortic valve Value Ref CHATO, LAX (H) 5.4 cm 3.8 - 5.2 Nan diam, ED 2.1 cm ---- ESD, LAX 3.4 cm 2.2 - 3.5 Peak v, S 1.47 m/sec ---- FS, LAX 37 % 27 - 45 VTI, S 28.5 cm ---- PW, ED, LAX 0.9 cm 0.6 - 0.9 Mean grad, S 5.0 mm Hg ---- FS 37 % - 45 Peak grad, S 9.0 mm Hg ---- PW, ED 0.9 cm 0.6 - 0.9 LVOT/AV, VTI ratio 0.81 ---- E', lat nan, TDI 25.5 cm/sec >=10.0 E/e', lat nan, 3 Mitral valve Value Ref TDI Peak E 0.87 m/sec ---- E', med nan, TDI 14.0 cm/sec >=7.0 Peak A 0.57 m/sec -- -- E/e', med nan, 6 Decel time 151 ms ---- TDI Peak grad, D 3.0 mm Hg ---- E', avg, TDI 19.8 cm/sec Peak E/A ratio 1.5 ---- E/e', avg, TDI 4 <=14 Pulmonic valve Value Ref LVOT Value Ref Peak v, S 1.23 m/sec ---- Peak cong, S 1.24 m/sec Peak grad, S 6.0 mm Hg ---- VTI, S 23.0 cm Peak grad, S 6 mm Hg Aortic root Value Ref Mean grad, S 3 mm Hg Root diam 3.0 cm <4.0 Ventricular septum Value Ref Ascending aorta Value Ref IVS, ED 0.9 cm 0.6 - 0.9 AAo AP diam, S 3.3 cm ---- Right ventricle Value Ref Aortic arch Value Ref CHATO, LAX 3.3 cm Arch diam 1.9 cm ---- CHATO minor ax, A4C (H) 4.3 cm 1.9 - 3.5 mid Decending aorta Value Ref Giorgio peak cong 1.31 m/sec ---- Left atrium Value Ref AP dim, ES 3.80 cm 2.70 - Inferior vena cava Value Ref 3.80 Diam 1.6 cm ---- ML dim, A4C 4.3 cm SI dim, A4C 4.9 cm Vol/bsa, ES, 1-p 25 ml/m^2 11 - 40 A4C Vol/bsa, ES, A/L 30 ml/m^2 16 - 34 Right atrium Value Ref SI dim, ES (H) 5.4 cm 3.4 - 5.3 ML dim, ES, A4C (H) 4.7 cm 2.6 - 4.4 Estimated RAP 3 mm Hg Legend: (L) and (H) henry values outside specified reference range. Prepared and electronically signed by Jesi Beard MD 06/01/2019 11:33
--- NOTE | 2019-06-01 19:36 | DS ---
CC: [facility] * DISCHARGE SUMMARY: DATE OF ADMISSION: 05/31/19 DATE OF DISCHARGE: 06/01/19 PRIMARY CARE PROVIDER: [facility]. MIRNA Keane, whom a referral has been made for hematology. DISPOSITION AT THE TIME OF DISCHARGE: Stable to be discharged home. PRIMARY DIAGNOSIS: Provoked left leg deep venous thrombus with associated bilateral pulmonary embolism with no evidence of hemodynamic compromise. SECONDARY DIAGNOSES: 1. Left ankle sprain. 2. Leukocytosis. MEDICATIONS AT THE TIME OF DISCHARGE: 1. Rivaroxaban 15 mg p.o. b.i.d. for an additional 21 days status post discharge and then transition to Xarelto 20 mg p.o. daily for an additional 3 to 6 months status post discharge. 2. Tylenol 650 mg p.o. q.6 hours p.r.n. for pain or fever. Medication changes on this hospitalization include the addition of all. 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 The patient was admitted to the Hospitalist Service for observation and to obtain echocardiogram and her hospital course per problem is as follows. 1. Left lower extremity DVT. The patient reports there is a family history of clotting and her father actually secondary to complications of a clotting disorder. This patient needs referral to director client given her age and the extent of her left lower extremity DVT from relatively mild provoking incident such as an ankle sprain. She is not on oral contraceptives and is sexually active with her boyfriend and uses barrier contraception. Declines dependency counselor on this at this time and is content to continue with barrier contraception. She needs to be anticoagulated for 3 to 6 months and then determine if such genetic testing at baseline will be useful in helping determine risks of moving forward. 2. Bilateral pulmonary embolisms without any evidence of hemodynamic compromise. She does have evidence of right heart strain seen on CT scan, which classifies this as sudden-onset PE, but troponins are negative and echocardiogram does not show regional wall motion abnormalities or any hemodynamically significant evidence of strain requiring lytic therapy. No bubble study was performed. She does note some evidence of right volume pressure overload, but again troponins are negative x3 overnight without chest pain, palpitations, or clinical correlating symptoms. Ejection fraction is 55% to 60%. The patient does not need oxygen and ambulates freely without the need of oxygen. The patient is counseled that if palpitations or chest pain are recurrent, she can return to the hospital. Overall, her PESI score is class 1 at 43 points at very low risk, 0 to 1.6% of a 30-day mortality in this group for complications related to pulmonary embolism. 3. Disposition. On the day of discharge, the patient is tolerating diet, voiding freely, ambulating without chest pain, palpitations or hypoxia. Her mother and her were counseled on the phone for 30 minutes about appropriate followup. Rivaroxaban was called in for her local pharmacy and ensured that she could receive it starting 06/01/19. She will need to follow up with [facility] within 3 weeks and a referral was placed for hematology to discuss whether genetic testing will be appropriate given her family history of clotting disorder. LABS AND STUDIES DONE DURING THIS HOSPITALIZATION: Labs on the day of discharge : CBC shows a white blood cell count of 15.6, hemoglobin 11.2, hematocrit 32, platelets 424. BMP shows sodium 134, potassium 3.5, chloride 105, carbon dioxide 21, anion gap 8, BUN 7, creatinine 0.67, and glucose 129. Troponin is 0 x3. On hospitalization, UA is unremarkable. Imaging includes a CTA that shows multiple acute pulmonary filling defects throughout the pulmonary artery tree including the anterior segmental branch of the right upper lobe, right middle lobe, and segmental branches of the right lower lobe and left lower lobe basilar segmental branches, but the main pulmonary artery is normal in caliber. A left lower extremity Doppler was done that shows a filling defect within the distal common femoral vein, which extends distally occluding the femoral, popliteal and peroneal veins. No superficial thrombophlebitis was noted on the left lower extremity Doppler and an echocardiogram was done that showed an ejection fraction of 55% to 60%. No regional wall motion abnormalities with right ventricle showing the cavity as moderately dilated with mild RV volume or pressure overload with no corresponding elevated troponins. Systolic pressure in the pulmonary artery cannot be accurately estimated and there is no clear valvular pathology other than mild regurgitation. No bubble flow was done to estimate whether a shunt is present. ITEMS TO FOLLOW UP ON STATUS POST DISCHARGE: Bilateral pulmonary embolisms and left lower extremity deep venous thrombosis in a patient with a history of family clotting disorder. The patient will need to be anticoagulated for 3 to 6 months as per clinical improvement. She is discharged on compression stockings, Tylenol, and information regarding this diagnosis and need to follow up with primary care and possible hematology in the future. She has no evidence of hemodynamic compromise or heart strain needing lytic therapy. Her troponins are negative. Her echocardiogram is to be expected and can be followed up on as needed if any new problems arise. She has no palpitations or arrhythmia that quantitate poor risk and again, PESI score reflects a low mortality group in this patient population. She knows that she is to follow up with primary care provider in 3 to 4 weeks and can follow up with hematology on a nonurgent basis. Her mother was counseled this on the phone as well, answered all questions, and determine the patient stable for discharge. TIME SPENT: Forty-five minutes were spent on the planning of this discharge with over half of that spent directly at the bedside of the patient, providing direct patient care, and coordinating care. If there are any questions about the care of this patient during this hospitalization, please do not hesitate to reach out and contact me directly. My cellphone is [phone]. This discharge summary represents the distillation of a 2-day hospitalization and more information can be found in the medical chart. A physical exam was done on the day of discharge, unremarkable, and details could be found in the daily progress note. [id number] #: [id number] [facility]
[2019-06-01 19:47] VITALS: BP 139/87
== END 2019-06-01 13:26 | disposition home or self-care (01) ==
LOC: ED 20:28 → MERGE 06-01 00:45 → MEDTELE 06-01 00:45
PROVIDERS: ADMIT Student in an Organized Health Care Education/Training Program; ATTEND Internal Medicine
DX: I82.402 Acute embolism and thrombosis of unspecified deep veins of left lower extremity (principal); S93.402A Sprain of unspecified ligament of left ankle, initial encounter; I26.99 Other pulmonary embolism without acute cor pulmonale; D72.829 Elevated white blood cell count, unspecified; Z79.01 Long term (current) use of anticoagulants; X58.XXXA Exposure to other specified factors, initial encounter; Y93.68 Activity, volleyball (beach) (court); Y92.9 Unspecified place or not applicable
CPT/HCPCS: 36415; 71275; 80048; 80053; 81003; 81015; 83605; 84484; 84702; 85025; 85027; 87086; 93306; 96360; 96361; 99284; A9270-GY; G0378; Q9967

== ENCOUNTER 2019-06-03 20:48 | Emergency (ER) | payer BC ==
--- NOTE | 2019-06-03 21:11 | ED ---
Shortness of Breath - HPI Summary HPI Summary: Patient recently [place] [facility] [place] and PE presents tonight for new onset chest tightness at rest and with exertion. Patient states she has been having ongoing SOB since discharge which has not progressed. Patient states she is compliant with Xarelto. Denies fever, cough, sore throat, and/V/D , abdominal pain, change in urine, change in BM. Medical history is none. - History of Current Complaint Chief Complaint: EDChestPainROMI Time Seen by Provider: 06/03/19 21:03 Hx Obtained From: Patient Onset/Duration: Sudden Onset, Lasting Hours Current Severity: Moderate Dyspnea At: Exertion Aggravating Factors: Nothing Associated Signs & Symptoms: Negative - Allergy/Home Medications Allergies/Adverse Reactions: Allergies Allergy/AdvReac Type Severity Reaction Status Date / Time Penicillins Allergy Intermediate Rash Verified 06/02/19 09:46 PMH/Surg Hx/FS Hx/Imm Hx Endocrine/Hematology History: Denies: Hx Diabetes, Hx Thyroid Disease Cardiovascular History: Denies: Hx Hypercholesterolemia, Hx Hypertension, Hx Peripheral Vascular Disease Respiratory History: Denies: Hx Asthma, Hx Chronic Obstructive Pulmonary Disease (COPD) GI History: Denies: Hx Ulcer History: Denies: Hx Renal Disease Musculoskeletal History: Denies: Hx Arthritis, Hx Osteoporosis Sensory History: Denies: Hx Cataracts, Hx Contacts or Glasses, Hx Glaucoma, Hx Legally Blind, Hx Deafness, Hx Hearing Aid Opthamlomology History: Denies: Hx Cataracts, Hx Contacts or Glasses, Hx Glaucoma, Hx Legally Blind EENT History: Denies: Hx Deafness Neurological History: Denies: Hx Headaches, Hx Seizures, Hx Transient Ischemic Attacks (TIA) Psychiatric History: Denies: Hx Anxiety, Hx Depression - Surgical History Surgery Procedure, Year, and Place: None Infectious Disease History: No Infectious Disease History: Denies: Hx Hepatitis, Hx Human Immunodeficiency Virus (HIV), Traveled Outside the [place] in Last 30 Days - Family History Known Family History: Positive: Cardiac Disease - father age 65 of CAD, hx of stroke. Negative: Diabetes, Renal Disease - Social History Alcohol Use: Weekly Hx Substance Use: No Substance Use Type: Reports: None Hx Tobacco Use: No Smoking Status (MU): Never Smoked Tobacco Review of Systems Constitutional: Negative Eyes: Negative ENT: Negative Positive: Chest Pain Positive: Shortness Of Breath Gastrointestinal: Negative Genitourinary: Negative Musculoskeletal: Negative Skin: Negative Neurological: Negative Psychological: Normal All Other Systems Reviewed And Are Negative: Yes Physical Exam - Summary Physical Exam Summary: Chest tightness nonreproducible. Regular rate and rhythm. Lung sounds clear to auscultation bilaterally. No respiratory distress, speaking in complete sentences. Triage Information Reviewed: Yes Vital Signs On Initial Exam: Initial Vitals Temp Pulse Resp BP Pulse Ox 100 F 184 20 140/87 100 06/03/19 20:53 06/03/19 20:53 06/03/19 20:53 06/03/19 20:53 06/03/19 20:53 Vital Signs Reviewed: Yes Appearance: Positive: Well-Appearing Skin: Positive: Warm Head/Face: Positive: Normal Head/Face Inspection Eyes: Positive: Normal Neck: Positive: Supple Respiratory/Lung Sounds: Positive: Clear to Auscultation Cardiovascular: Positive: Normal Abdomen Description: Positive: Nontender Musculoskeletal: Positive: Normal Neurological: Positive: Normal Psychiatric: Positive: Normal AVPU Assessment: Alert - [place] Coma Scale Best Eye Response: 4 - Spontaneous Best Motor Response: 6 - Obeys Commands Best Verbal Response: 5 - Oriented Coma Scale Total: 15 Procedures - Sedation Patient Received Moderate/Deep Sedation with Procedure: No Diagnostics - Vital Signs Vital Signs Temp Pulse Resp BP Pulse Ox 06/03/19 20:53 100 F 184 20 140/87 100 - Laboratory Result Diagrams: 06/03/19 21:17 06/03/19 21:17 Lab Statement: Any lab studies that have been ordered have been reviewed, and results considered in the medical decision making process. Course/Dx - Course Course Of Treatment: Patient recently discharged from [facility] [place] and PE presents tonight for new onset chest tightness at rest and with exertion. Patient states she has been having ongoing SOB since discharge which has not progressed. Patient states she is compliant with Xarelto. Denies fever, cough , sore throat, and/V/D, abdominal pain, change in urine, change in BM. Medical history is none. - Diagnoses Provider Diagnoses: Pulmonary embolism Discharge ED - Sign-Out/Discharge Documenting (check all that apply): Patient Departure - Discharge Plan Condition: Stable Disposition: HOME Patient Education Materials: Pulmonary Embolism (ED) Referrals: No Primary Care Phys,NOPCP [Primary Care Provider] - Additional Instructions: Continue takes Xarelto. Follow-up with primary care. Return to the ED for any new or worsening symptoms. - Billing Disposition and Condition Condition: STABLE Disposition: Home
[2019-06-03 21:24] LABS: ABS Basophils 0.1 10^3/ul (0-0.2); ABS Eosinophils 0.3 10^3/ul (0-0.6); ABS Monocytes 1.4 10^3/ul (0-0.8); ABS Neutrophils 7.8 10^3/ul (1.5-7.7); Hematocrit 35 % (35-47); Hemoglobin 12.3 g/dL (12.0-16.0); Lymphocyte % 34.4 %; Mean Corpuscular HGB Conc 35 g/dL (31-36); Mean Corpuscular Hemoglobin 30 pg (27-31); Mean Corpuscular Volume 87 fL (80-97); Mean Platelet Volume 6.6 fL (7.4-10.4); Platelet Count 634 10^3/uL (150-450); Red Blood Count 4.07 10^6 /uL (3.70-4.87); Red Cell Distribution Width 13 % (10-15); White Blood Count 14.5 10^3/uL (3.5-10.8)
[2019-06-03] MEDS ORDERED: Iodixanol* (CONTRAST) 320 MG/ML 100 ML SDV IV ONE (21:32)
[2019-06-03 21:48] LABS: ALT 16 U/L (7-52); AST 16 U/L (13-39); Albumin 3.9 g/dL (3.2-5.2); Alkaline Phosphatase 71 U/L (34-104); Anion Gap 9 mmol/L (2-11); BUN/Creatinine Ratio 11.3 (8-20); Blood Urea Nitrogen 8 mg/dL (6-24); CO2 Carbon Dioxide 24 mmol/L (22-32); Calcium 9.4 mg/dL (8.6-10.3); Chloride 104 mmol/L (101-111); EGFR African American 123.4 (>60); Globulin 3.9 g/dL (2-4); Glucose 96 mg/dL (70-100); Potassium 3.6 mmol/L (3.5-5.0); Sodium 137 mmol/L (135-145); Total Protein 7.8 g/dL (6.4-8.9)
[2019-06-03 21:59] LABS: Troponin I 0.01 ng/mL (<0.03)
[2019-06-03 22:03] LABS: HCG Pregnancy < 0.60 mIU/mL
[2019-06-03 22:24] LABS: TSH (Thyroid Stimulating Horm) 4.02 mcIU/mL (0.34-5.60)
[2019-06-04 00:18] VITALS: BP 126/83
== END 2019-06-04 00:15 | disposition home or self-care (01) ==
LOC: ED 20:48
DX: I26.99 Other pulmonary embolism without acute cor pulmonale (principal); R07.9 Chest pain, unspecified; Z88.0 Allergy status to penicillin; R06.02 Shortness of breath; Z79.01 Long term (current) use of anticoagulants
CPT/HCPCS: 36415; 71275; 80053; 83880; 84443; 84484; 84702; 85025; 86140; 93005; 99282; Q9967